=== PATIENT | female | born 1970 | race Caucasian/White ===

== ENCOUNTER 2016-11-01 13:58 | Emergency (ER) | payer OTHER ==
[2016-11-01 14:07] VITALS: BP 123/88
[2016-11-01 14:27] LABS: Hematocrit 38.2 % (37.0-47.0); Hemoglobin 12.2 gm/dL (12.5-16.0); Mean Cell Volume 91.8 fl (78-100); Mean Corpuscular Hemoglobin 29.3 pg (27-31); Mean Corpuscular Hgb Conc 31.9 g/dl (32-36); Mean Platelet Volume 9.1 fl (6.0-9.5); Neutrophil # 6.1 K/mm3 (1.3-6.0); Neutrophil % 68.4 % (42-75.0); Platelet Count 361 K/mm3 (150-450); Red Blood Count 4.16 M/mm3 (4.2-5.4); Red Cell Distribution Width 12.3 % (11.5-14.0); White Blood Count 8.9 K/mm3 (4.0-10.5)
[2016-11-01 14:41] LABS: Albumin * 3.3 gm/dl (3.4-5.0); Anion Gap 10.1 mmol/L (6.8-13.8); BUN/Creatinine Ratio 12.5 (9.0-21.6); Bilirubin, Total 0.1 mg/dL (0.0-1.1); Ca. Corrected For Albumin 9.4 mg/dL (8.4-10.2); Calcium * 9.2 mg/dL (7.9-10.9); Carbon Dioxide 33.9 mmol/L (24-32.6)
--- OUTSIDE RECORDS SUMMARY | 2016-11-01 15:02 | XMS REPORT | Continuity of Care Document ---
:1970 Author Organization [facility] ([facility]) Address [address] [place] [address] Phone [phone] Care Team Providers Name Role Phone Loco Mcneal Primary Care Provider [phone] Source Comments This disclosure is being made pursuant to the Care Everywhere program, applicable federal and state laws, and may not contain all informaitonavailable regarding this patient.[facility] ([facility]) Active Allergies and Adverse Reactions Not on File Current Medications Not on file Active Problems Not on file Social History Tobacco Use Types Packs/Day Years Used Date Never Assessed Last Filed Vital Signs Vital Sign Reading Time Taken Blood Pressure - - Pulse - - Temperature - - Respiratory Rate - - Height 1.71 m (5' 7.32") 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
--- NOTE | 2016-11-01 15:15 | ERNOTE ---
Date of Service: 11/01/16 Time Seen by Provider: 11/01/16 14:01 Stated Complaint: COUGH/BODY ACHES Presenting Symptoms:: cough Source: patient, RN/MD, RN notes reviewed Exam Limitations: no limitations Immunizations: IMMUNIZATION HX History of Influenza Vaccine No Allergies/Adverse Reactions: Allergies No Known Allergies Allergy (Verified 11/01/16 14:06) Home Medications: HOME MEDICATIONS Dextroamphetamine/Amphetamine [Adderall Xr 30 mg Capsule] 30 mg PO BID 02/07/13 [Last Taken Unknown] Albuterol Sulfate [Albuterol Sulfate 2.5 MG/0.5ML] 1 vial IH Q4H PRN 11/01/16 [ Last Taken Unknown] Albuterol Sulfate/Ipratropium [Duoneb 2.5-0.5MG/3ML Soln] 3 ml IH Q6H PRN #60 nebu 11/01/16 [Last Taken Unknown] Amitriptyline HCl 200 mg PO HS 11/01/16 [Last Taken Unknown] Armodafinil [Nuvigil] 250 mg PO DAILY 11/01/16 [Last Taken Unknown] predniSONE [Prednisone] 2 tab PO DAILY #14 tab 11/01/16 [Last Taken Unknown] - History of Present Ilness Narrative: 46 y/o female sent to the ED from the walk-in clinic for a cough, shortness of breath and body aches that began 2 weeks ago. She reports being ill initially with what she thought might be influenza. Her other symptoms have resolved. She reports fatigue and decreased activity tolerance. Modifying Factors - Improves: Reports: rest Modifying Factors - Worsens: Reports: activity, coughing Associated Symptoms: Reports: cough, shortness of breath, muscle aches. Denies : chest pain/soreness, wheezing, facial pain, nasal congestion, nasal drainage, dizziness, lightheadedness, earache, headache, sore throat, fever/chills Prior Treatment: Denies: recently seen, currently on antibiotics Review of Systems - Review of Systems Constitutional: Present: recent illness, fatigue, malaise EYE: Present: no symptoms reported ENT: Absent: ear pain, nose congestion, sore throat Respiratory: Present: See HPI Cardiology: Absent: chest pain, palpitations, edema Gastrointestinal/Abdominal: Absent: nausea, vomiting, abdominal pain Genitourinary: Present: no symptoms reported Musculoskeletal: Present: See HPI Skin: Absent: rash, lesions Neurological: Present: See HPI Endocrine: Present: no symptoms reported Hematologic/Lymphatic: Present: no symptoms reported Psych: Present: no symptoms reported - Patient's Past Medical History Patient History - Medical: Anxiety, Fibromyalgia Patient History - Cardiac/Respiratory: Bronchitis, Pneumonia Patient History - Cancer: No Hx of Cancer Patient History - Surgical Procedures: Appendectomy, Cholecystectomy, Hysterectomy, T & A, Other - Social History Living Situations: home Smoking Status: Current every day smoker Have you smoked in the past 12 months: Yes Alcohol Use: none Drug Use: none - Immunizations History of Influenza Vaccine: No Physical Exam - Physical Exam General Appearance: Present: wd/wn, alert, no apparent distress, thin Eye Exam: Normal inspection: bilateral Ears, Nose, Throat: Present: hearing grossly normal, pharyngeal erythema. Absent: abnormal TM (R), abnormal TM (L), nasal congestion, sinus pain/drainage Neck: Present: normal inspection, nontender, supple Respiratory: Present: no respiratory distress, no accessory muscle use, lungs clear, expiration (prolonged) Cardiovascular/Chest: Present: regular rate, rhythm, no murmur, normal peripheral pulses Extremity Exam: Present: normal inspection, no edema, normal range of motion Neurological Exam: Present: alert, oriented, normal mood/affect, no motor/ sensory deficits Skin Exam: Present: warm/dry, pallor ED Progress - Results and Orders Patient's Lab Results:: I have reviewed the patient's lab results. - Vital Signs Patient's Vital Signs:: I have reviewed the patient's vital signs. Vital Signs: Vital Signs 11/01/16 14:02 Temperature 36.6 C Pulse Rate 84 Respiratory 16 Rate Blood Pressure 123/88 O2 Sat by Pulse 98 Oximetry - X-Ray X-Ray #1 X-Ray: chest Interpretation: Interp. by me X-ray Comments: No focal consolidation noted, hyperinflation and increased airway markings consistent with bronchitis - Progress/Reassessment Chief Complaint: Upper Respiratory Symptoms Progress:: Unchanged Departure - Departure Clinical Impression: Bronchitis, acute Qualifiers: Bronchitis organism: unspecified organism Qualified Code(s): J20.9 - Acute bronchitis, unspecified Disposition: Home Follow Up Needed Condition: Stable Instructions: Acute Bronchitis, [id number], Form - Excuse from Work, School, or Physical Activity Prescriptions: Albuterol Sulfate/Ipratropium [Duoneb 2.5-0.5MG/3ML Soln] 3 ml IH Q6H PRN #60 nebu PRN Reason: Wheezing predniSONE [Prednisone] 2 tab PO DAILY #14 tab
== END 2016-11-01 15:13 | disposition home or self-care (01) ==
LOC: ER 13:58
DX: J20.9 Acute bronchitis, unspecified (principal); Z72.0 Tobacco use; M79.7 Fibromyalgia

== ENCOUNTER 2017-07-13 16:51 | Emergency (ER) | payer OTHER ==
[2017-07-13] MEDS ORDERED: oxyCODONE HCL/ACETAMINOPHEN 1 TAB TABLET PO ONE (17:22)
--- NOTE | 2017-07-13 17:23 | ERNOTE ---
Upper Extremity HPI - Narrative Date of Service: 07/13/17 - General Extremities Pain Location: wrist: bilateral Time Seen by Provider: 07/13/17 17:08 Source: patient, RN notes reviewed Exam Limitations: no limitations - Immun/Allergies/Home Medications Immunizations: IMMUNIZATION HX Immunizations Up to Date Yes History of Influenza Vaccine No Allergies/Adverse Reactions: Allergies Allergy/AdvReac Type Severity Reaction Status Date / Time No Known Allergies Allergy Verified 07/13/17 17:01 Home Medications: HOME MEDICATIONS Dextroamphetamine/Amphetamine [Adderall Xr 30 mg Capsule] 30 mg PO BID 02/07/13 [Last Taken Unknown] Amitriptyline HCl 200 mg PO HS 11/01/16 [Last Taken Unknown] Armodafinil [Nuvigil] 250 mg PO DAILY 11/01/16 [Last Taken Unknown] Gabapentin [Neurontin] 600 mg PO TID 07/13/17 [Last Taken Unknown] oxyCODONE HCL/ACETAMINOPHEN [Percocet 5 MG/325 MG] 1 tab PO Q6H PRN #16 tab 02/21 [Last Taken Unknown] - History of Present Illness Narrative: 46 year old female brought to the ED by her daughter for bilateral wrist pain. The patient reports getting tripped up by her dog's chain around noon today. She caught herself with both hands. She reports that her pain is worse in the right wrist than in the left. She took Tylenol earlier this afternoon without improvement. Date (Duration): 07/13/17 Time (Timing): 12:00 Occurred: this afternoon Location of Incident: home Method of Injury: Reports: fell Reason for Fall: Reports: tripped Loss of Consciousness: Reports: no loss of consciousness Associated Symptoms: Denies: tingling, weakness, numbness distally Other Injuries: Reports: none Prior Treament: Denies: recently seen, similar symptoms before Review of Systems - Review of Systems Constitutional: Absent: recent illness, fever, malaise EYE: Present: no symptoms reported ENT: Present: no symptoms reported Respiratory: Present: no symptoms reported Cardiology: Absent: chest pain, syncope Gastrointestinal/Abdominal: Absent: nausea, vomiting Genitourinary: Present: no symptoms reported Musculoskeletal: Present: joint pain, joint swelling. Absent: back pain, neck pain Skin: Absent: rash, lesions, lumps Neurological: Absent: weakness, numbness, tingling Endocrine: Present: no symptoms reported Hematologic/Lymphatic: Absent: easy bruising, easy bleeding Psych: Present: no symptoms reported - Patient's Past Medical History Patient History - Medical: Anxiety, Fibromyalgia Patient History - Cardiac/Respiratory: Bronchitis, Pneumonia Patient History - Cancer: No Hx of Cancer Patient History - Surgical Procedures: Appendectomy, Cholecystectomy, Hysterectomy, T & A, Other LMP (females 10-50): Menopausal - Social History Living Situations: home Smoking Status: Current every day smoker Have you smoked in the past 12 months: Yes Alcohol Use: none Drug Use: none - Immunizations Immunizations Up to Date: Yes History of Influenza Vaccine: No Physical Exam - Physical Exam General Appearance: Present: wd/wn, alert, mild distress, other - tearful, disheveled Head Exam: Present: normal inspection, no evidence of injury Respiratory: Present: no respiratory distress, no accessory muscle use Cardiovascular/Chest: Present: normal peripheral pulses Peripheral Pulses: N=norm/S=strong/W=weak/B=bound/A=absent: Radial (R): Strong, Radial (L): Strong Extremity Exam: Present: decreased range of motion - bilateral wrists, bony tenderness - bilateral wrists, joint swelling - right wrist, other - deformity present right wrist, ecchymosis present on bilateral wrists Neurological Exam: Present: alert, oriented, normal mood/affect, no motor/ sensory deficits Skin Exam: Present: normal color, warm/dry ED Progress - Results and Orders Patient's Lab Results:: I have reviewed the patient's lab results. - Vital Signs Patient's Vital Signs:: I have reviewed the patient's vital signs. Vital Signs: Vital Signs 07/13/17 16:59 Temperature 36.7 C Pulse Rate 85 Respiratory 14 Rate Blood Pressure 111/58 O2 Sat by Pulse 98 Oximetry - X-Ray X-Ray #1 X-Ray: wrist - Right Interpretation: Interp. by me X-ray Comments: Impacted fracture of distal radius and mildly displaced ulnar styloid fracture X-Ray #2 X-Ray: wrist - Left Interpretation: Interp. by me X-ray Comments: No acute osseous abnormality noted, ulnar styloid fracture present that appears old - Progress/Reassessment Chief Complaint: Fall Progress:: Improved Procedures Location: Right wrist Pre-Proc Neuro Vasc Exam: normal Hand-Made Type: ocl Splint: sugar-tong - reverse Alignment good: Yes Splint applied by: Nurse Post-Proc Neuro Vasc Exam: normal Complications: Pt beatriz procedure well Departure Clinical Impression: Wrist fracture, right Qualifiers: Encounter type: initial encounter Fracture type: closed Qualified Code(s): S62.101A - Fracture of unspecified carpal bone, right wrist, initial encounter for closed fracture Left wrist sprain Qualifiers: Encounter type: initial encounter Qualified Code(s): S63.502A - Unspecified sprain of left wrist, initial encounter - Departure Disposition: Home Follow Up Needed Condition: Stable Instructions: Wrist Fracture Treated With Immobilization, [id number], Form - Excuse from Work, School, or Physical Activity Additional Instructions: Ice and elevate Take Tylenol for mild pain, Percocet for more severe pain - may cause stomach upset, dizziness, drowsiness and constipation that requires a laxative Contact orthopedics tomorrow morning regarding follow up Referrals: Nicho Espinoza MD [Staff Physician] - Prescriptions: oxyCODONE HCL/ACETAMINOPHEN [Percocet 5 MG/325 MG] 1 tab PO Q6H PRN #16 tab PRN Reason: Pain
[2017-07-13] MEDS ORDERED: oxyCODONE HCL/ACETAMINOPHEN 1 TAB TABLET ONE (17:25)
[2017-07-13 18:32] VITALS: BP 112/40
== END 2017-07-13 18:28 | disposition home or self-care (01) ==
LOC: ER 16:51
PROC: 2W3CX1Z Immobilization of Right Lower Arm using Splint (ICD-10-PCS; principal; 2017-07-13)
DX: S62.101A Fracture of unspecified carpal bone, right wrist, initial encounter for closed fracture (principal); S63.502A Unspecified sprain of left wrist, initial encounter; W01.0XXA Fall on same level from slipping, tripping and stumbling without subsequent striking against object, initial encounter; Y92.009 Unspecified place in unspecified non-institutional (private) residence as the place of occurrence of the external cause; F17.200 Nicotine dependence, unspecified, uncomplicated

== ENCOUNTER 2017-10-29 07:36 | Emergency (ER) | payer OTHER ==
[2017-10-29] MEDS ORDERED: ALBUTEROL SULFATE 2.5 MG/0.5 ML VIAL.NEB IH ONE ×2 (09:23→09:28)
--- NOTE | 2017-10-29 09:31 | ERNOTE ---
Dyspnea - General Presenting Symptoms: shortness of breath Time Seen by Provider: 10/29/17 09:09 Source: patient Exam Limitations: no limitations - Immun/Allergies/Home Medications Immunizations: IMMUNIZATION HX Immunizations Up to Date Yes History of Influenza Vaccine No Hx Pneumococcal Vaccination No Allergies/Adverse Reactions: Allergies No Known Allergies Allergy (Verified 07/13/17 17:01) Home Medications: HOME MEDICATIONS Dextroamphetamine/Amphetamine [Adderall Xr 30 mg Capsule] 30 mg PO BID 02/07/13 [Last Taken Unknown] Amitriptyline HCl 200 mg PO HS 11/01/16 [Last Taken Unknown] Gabapentin [Neurontin] 600 mg PO TID 07/13/17 [Last Taken Unknown] - History of Present Illness Narrative: Patient has had 'the flu' for about a week, initially vomiting which has resolved for about three days, cough and fever. The last couple of days she has also been short of breath with exertion and is wondering whether she is getting pneumonia. She has a history of COPD, was diagnosed with pneumonia in July2017 Her daughter was diagnosed with influenza A last week, she has cut back on her smoking but is not quite ready to quit yet Date (Duration): 10/22/17 Treatment [employer]ACH[employer] PERSON: albuterol - last night Initiating event: Reports: upper resp illness Frequency of episodes: Reports: occassional episodes Modifying Factors - (Improves): Reports: albuterol Modifying Factors (Worsens): Reports: activity Associated Symptoms-Dyspnea: Reports: fever/chills, cough Prior Treatment: Denies: recently seen, currently on antibiotics Review of Systems - Review of Systems Constitutional: Present: fever, chills EYE: Absent: vision changes ENT: Present: sore throat - resolved now Respiratory: Present: See HPI, shortness of breath, cough Cardiology: Absent: chest pain Gastrointestinal/Abdominal: Present: See HPI. Absent: nausea, diarrhea, abdominal pain Genitourinary: Present: no symptoms reported Skin: Absent: rash Neurological: Absent: headache - Patient's Past Medical History Patient History - Medical: Anxiety, Fibromyalgia Patient History - Cardiac/Respiratory: Bronchitis, COPD, Pneumonia Patient History - Cancer: No Hx of Cancer Patient History - Surgical Procedures: Appendectomy, Cholecystectomy, Hysterectomy, T & A, Other Patient History - Other: None - Social History Living Situations: other Abuse History: No History of abuse Psych History: No pertinent hx Smoking Status: Current every day smoker Cigarettes Packs Per Day: 0.5 Have you smoked in the past 12 months: Yes Do you dip or chew tobacco: No Patient requests Smoking Cessation Consult: No Initiate information on Smoking Cessation: No Alcohol Use: none Drug Use: none - Immunizations Immunizations Up to Date: Yes Hx Pneumococcal Vaccination: No History of Influenza Vaccine: No Physical Exam - Physical Exam General Appearance: Present: wd/wn, alert, no apparent distress Head Exam: Present: normal inspection Eye Exam: Normal inspection: bilateral Ears, Nose, Throat: Present: normal except -, abnormal TM (R) - dull, no erythema, nasal congestion, normal pharynx Respiratory: Present: no respiratory distress, decreased breath sounds, expiration (prolonged), wheezing Cardiovascular/Chest: Present: regular rate, rhythm, no murmur Extremity Exam: Present: no edema Neurological Exam: Present: alert, oriented, normal mood/affect Skin Exam: Present: normal color, warm/dry ED Progress - Vital Signs Patient's Vital Signs:: I have reviewed the patient's vital signs. Vital Signs: Vital Signs 10/29/17 10/29/17 07:44 09:02 Temperature 36.8 C Pulse Rate 67 83 Respiratory 16 15 Rate Blood Pressure 107/45 107/45 O2 Sat by Pulse 100 99 Oximetry - EKG EKG: NSR, unchanged from - 2012, other - no acute changes EKG read: Interp. by me - X-Ray X-Ray #1 X-Ray: chest - no acute, consistent with COPD Interpretation: Reviewed by me - Progress/Reassessment Chief Complaint: Dyspnea Progress Note-Subjective: 10/29/17 09:28 discussed that getting influenza testing will not change treatment at this time. discussed CXR results, offered lab testing, patient declined 10/29/17 09:51 wheezes resolved after neb treatment Departure Clinical Impression: Bronchitis, acute Qualifiers: Bronchitis organism: unspecified organism Qualified Code(s): J20.9 - Acute bronchitis, unspecified - Departure Disposition: Home self-care Condition: Good Instructions: Acute Bronchitis, [id number], Form - Excuse from Work, School, or Physical Activity Additional Instructions: use your nebulizer as needed for cough and shortness of breath try over the counter mucinex call the clinic for a follow up appointment to get established with a primary care doctor Referrals: Sam Barry DO [Staff Physician] -
[2017-10-29 10:07] VITALS: BP 102/60
== END 2017-10-29 10:05 | disposition home or self-care (01) ==
LOC: ER 07:36
DX: J20.9 Acute bronchitis, unspecified (principal); F17.210 Nicotine dependence, cigarettes, uncomplicated